=== PATIENT | male | born 1950 | race Caucasian/White ===

== ENCOUNTER 2016-10-21 20:27 | Emergency (ER) | payer SELFPAY ==
[~2016-10-21] VITALS: Ht 193 cm; Wt 120.0 kg
[~2016-10-21 20:27] MED LIST: ADVAIR 100/501 DISK IH; ADVIL,NUPRIN,M200 MG PO; ANTIVERT25 MG PO; ASPIRIN E.C.81 M1 PO; Lipitor PO; NOHOMEMEDS; VICODIN 5-3001 EACH PO; VITAMIN C PO
[2016-10-21 22:12] VITALS: BP 118/63
== END 2016-10-21 22:31 | disposition home or self-care (01) ==
LOC: EME 20:27
DX: S83.91XA Sprain of unspecified site of right knee, initial encounter (principal); Z88.0 Allergy status to penicillin
CPT/HCPCS: 73564; 99281; 99283